=== PATIENT | female | born 1945 | race Caucasian/White ===

== ENCOUNTER 2017-01-04 11:15 | Outpatient (CLI) | payer OTHER ==
[2013-03-22 07:48] VITALS: BP 140/54
[2017-01-04 11:58] LABS: eGFR (African) > 60; eGFR (Non-African) > 60
== END 2017-01-04 11:16 ==
LOC: LAB 11:15
PROVIDERS: ATTEND Family Medicine
DX: E78.2 Mixed hyperlipidemia (principal)
CPT/HCPCS: 36415; 80053; 80061

== ENCOUNTER 2017-12-31 08:55 | Outpatient (CLI) | payer OTHER ==
[2013-03-22 07:48] VITALS: BP 140/54
== END 2017-12-31 08:56 ==
LOC: LAB 08:55
PROVIDERS: ATTEND Family Medicine
DX: E78.2 Mixed hyperlipidemia (principal)
CPT/HCPCS: 36415; 80061